=== PATIENT | male | born 1970 | race Caucasian/White ===

== ENCOUNTER 2019-12-28 07:17 | Inpatient (IN) | payer MEDICARE, MEDICAID ==
[~2019-12-28] VITALS: Ht 180.3 cm; Wt 89.8 kg
[~2019-12-28 07:17] MED LIST: ARIP15TA2 PO; OXCA300T29 PO; RISP4 PO
[2019-12-28] MEDS ORDERED: QUET25TA PO (07:24)
[2019-12-28] MEDS ORDERED: DIVA-76 PO (07:24)
[2019-12-28 08:12] LABS: BASOPHILS % (AUTO) 0.8 % (0.0-2.0); EOSINOPHILS % (AUTO) 3.4 % (1.0-6.0); HEMATOCRIT 44.3 % (41-53); LYMPHOCYTES # (AUTO) 0.8 K/uL (1.0-4.8); MEAN CORPUSCULAR HEMOGLOBIN 29.7 pg (26.0-34.0); MEAN CORPUSCULAR HGB CONC 33.9 G/dL (31.0-37.0); MEAN CORPUSCULAR VOLUME 88 fL (80-100); MONOCYTES # (AUTO) 0.5 K/uL (0.1-1.0); MONOCYTES % (AUTO) 13.1 % (2.0-9.0); NEUTROPHILS # (AUTO) 2.3 K/uL (1.8-7.7); NEUTROPHILS % (AUTO) 61.7 % (40.0-70.0); PLATELET COUNT (AUTO) 129 K/uL (150-450); RED BLOOD CELL COUNT(AUTO) 5.05 MIL/uL (4.50-5.90); RED CELL DISTRIBUTION WIDTH 13.9 % (11.5-14.5)
[2019-12-28 08:22] LABS: ANION GAP 8 mmol/L (8-16); CALCIUM, TOTAL 8.7 mg/dL (8.8-10.5); CARBON DIOXIDE 29 mmol/L (22-29); CHLORIDE 104 mmol/L (98-107); CREATININE 1.17 mg/dL (0.60-1.30); GLOMERULAR FILTR. RATE CALC > 60 mL/min (>60); GLUCOSE,RANDOM 89 mg/dL (70-110); SODIUM SERUM 141 mmol/L (136-145); UREA NITROGEN, BLOOD 17 mg/dL (7-18)
[2019-12-28 08:28] LABS: ALANINE AMINOTRANSFERASE 22 U/L (12-78); ALBUMIN 3.6 g/dL (3.4-5.0); ALKALINE PHOSPHATASE 70 U/L (46-116); ASPARTATE AMINOTRANSFERASE 15 U/L (15-37); BILIRUBIN,TOTAL 1.7 mg/dL (0.1-1.0); TOTAL PROTEIN, SERUM 6.3 g/dL (6.4-8.2)
[2019-12-28] MEDS ORDERED: HydrOXYzine PAMOATE 50 MG CAPSULE PO PRN (10:30)
[2019-12-28] MEDS ORDERED: TUBERCULIN, PURIFIED PROTEIN DERIVATIVE 5 TU/0.1 ML SYRINGE ID ONE (10:30)
[2019-12-28] MEDS ORDERED: MAG HYDROX/AL HYDROX/SIMETH ES 30 ML SUSPENSION UDCUP PO PRN (10:30)
[2019-12-28] MEDS ORDERED: MAGNESIUM HYDROXIDE SUSPENSION 30 ML UDCUP PO PRN (10:30)
[2019-12-28] MEDS ORDERED: ACETAMINOPHEN 325 MG TABLET PO PRN (10:30)
[2019-12-28] MEDS ORDERED: GuaiFENesin/D-METHORPHAN [SUGAR-FREE] 200-20MG/10 ML SYRUP UDCUP PO PRN (10:30)
[2019-12-28] MEDS ORDERED: PROMETHAZINE HCL 25 MG TABLET PO PRN (10:30)
[2019-12-28] MEDS ORDERED: QUEtiapine FUMARATE 100 MG TABLET PO PRN (10:30)
[2019-12-28] MEDS ORDERED: LOPERAMIDE HCL 2 MG CAPSULE PO PRN (10:30)
[2019-12-28 13:56] VITALS: BP 121/83
[2019-12-28 16:02] VITALS: BP 106/69
[2019-12-28] MEDS: THIAMINE HCL 100 MG TABLET PO SCH (16:34)
[2019-12-28] MEDS: QUEtiapine FUMARATE 200 MG TABLET PO SCH (20:40)
[2019-12-28] MEDS: DIVALPROEX SODIUM 500 MG ER TABLET PO SCH (20:41)
[2019-12-29 05:42] VITALS: BP 98/67
[2019-12-29 08:02] VITALS: BP 138/68
[2019-12-29 08:02] LABS: CHOL/HDL RATIO 3.1 (4.2-7.3); FREE T4 (FREE THYROXINE) 1.01 ng/dL (0.76-1.46); THYROID STIMULATING HORMONE 0.73 uIU/mL (0.36-3.74)
[2019-12-29] MEDS: THIAMINE HCL 100 MG TABLET PO SCH ×2 (08:10→16:33)
[2019-12-29] MEDS: FOLIC ACID 1 MG TABLET PO SCH (08:10)
[2019-12-29] MEDS: MULTIVITAMINS WITH MINERALS, THERAPEUTIC TABLET PO SCH (08:10)
[2019-12-29] MEDS: CITALOPRAM HYDROBROMIDE 20 MG TABLET PO SCH (08:10)
[2019-12-29 09:40] LABS: HEMOGLOBIN A1C 5.2 % (3.8-5.6)
[2019-12-29 16:04] VITALS: BP 106/67
[2019-12-29] MEDS: QUEtiapine FUMARATE 200 MG TABLET PO SCH (20:29)
[2019-12-29] MEDS: DIVALPROEX SODIUM 500 MG ER TABLET PO SCH (20:30)
[2019-12-30 06:06] VITALS: BP 105/66
[2019-12-30] MEDS: MULTIVITAMINS WITH MINERALS, THERAPEUTIC TABLET PO SCH (08:10)
[2019-12-30] MEDS: CITALOPRAM HYDROBROMIDE 20 MG TABLET PO SCH (08:10)
[2019-12-30] MEDS: FOLIC ACID 1 MG TABLET PO SCH (08:10)
[2019-12-30] MEDS: THIAMINE HCL 100 MG TABLET PO SCH ×2 (08:10→16:27)
[2019-12-30 08:23] VITALS: BP 104/62
[2019-12-30 16:02] VITALS: BP 119/81
[2019-12-30] MEDS: LORazepam 2 MG TABLET PO PRN (16:27)
[2019-12-30] MEDS: QUEtiapine FUMARATE 200 MG TABLET PO SCH (20:53)
[2019-12-30] MEDS: DIVALPROEX SODIUM 500 MG ER TABLET PO SCH (20:53)
[2019-12-31 00:11] VITALS: BP 103/49
[2019-12-31 08:14] VITALS: BP 100/60
[2019-12-31] MEDS: MULTIVITAMINS WITH MINERALS, THERAPEUTIC TABLET PO SCH (08:38)
[2019-12-31] MEDS: THIAMINE HCL 100 MG TABLET PO SCH ×2 (08:38→16:10)
[2019-12-31] MEDS: CITALOPRAM HYDROBROMIDE 20 MG TABLET PO SCH (08:38)
[2019-12-31] MEDS: FOLIC ACID 1 MG TABLET PO SCH (08:38)
[2019-12-31] MEDS: LORazepam 2 MG TABLET PO PRN (16:10)
[2019-12-31 16:31] VITALS: BP 105/64
[2019-12-31] MEDS: DIVALPROEX SODIUM 500 MG ER TABLET PO SCH (19:55)
[2019-12-31] MEDS: QUEtiapine FUMARATE 200 MG TABLET PO SCH (19:55)
[2020-01-01 00:14] VITALS: BP 127/69
[2020-01-01] MEDS: LORazepam 2 MG TABLET PO PRN (06:04)
[2020-01-01 08:32] VITALS: BP 125/72
[2020-01-01] MEDS: THIAMINE HCL 100 MG TABLET PO SCH ×2 (09:34→17:17)
[2020-01-01] MEDS: FOLIC ACID 1 MG TABLET PO SCH (09:34)
[2020-01-01] MEDS: CITALOPRAM HYDROBROMIDE 20 MG TABLET PO SCH (09:34)
[2020-01-01] MEDS: MULTIVITAMINS WITH MINERALS, THERAPEUTIC TABLET PO SCH (09:34)
[2020-01-01 16:22] VITALS: BP 126/70
[2020-01-01] MEDS: DIVALPROEX SODIUM 500 MG ER TABLET PO SCH (20:21)
[2020-01-01] MEDS: QUEtiapine FUMARATE 200 MG TABLET PO SCH (20:21)
[2020-01-02 06:00] VITALS: BP 132/80
[2020-01-02 08:09] VITALS: BP 119/74
[2020-01-02] MEDS: THIAMINE HCL 100 MG TABLET PO SCH ×2 (08:31→16:26)
[2020-01-02] MEDS: FOLIC ACID 1 MG TABLET PO SCH (08:31)
[2020-01-02] MEDS: CITALOPRAM HYDROBROMIDE 20 MG TABLET PO SCH (08:31)
[2020-01-02] MEDS: MULTIVITAMINS WITH MINERALS, THERAPEUTIC TABLET PO SCH (08:31)
[2020-01-02 16:04] VITALS: BP 117/63
[2020-01-02] MEDS: QUEtiapine FUMARATE 200 MG TABLET PO SCH (20:53)
[2020-01-02] MEDS: DIVALPROEX SODIUM 500 MG ER TABLET PO SCH (20:53)
[2020-01-03] MEDS: LORazepam 2 MG TABLET PO PRN (00:58)
[2020-01-03] MEDS: ZOLPIDEM TARTRATE 10 MG TABLET PO PRN (00:58)
[2020-01-03 01:01] VITALS: BP 115/76
[2020-01-03] MEDS: FOLIC ACID 1 MG TABLET PO SCH (08:05)
[2020-01-03] MEDS: MULTIVITAMINS WITH MINERALS, THERAPEUTIC TABLET PO SCH (08:05)
[2020-01-03] MEDS: THIAMINE HCL 100 MG TABLET PO SCH ×2 (08:05→16:36)
[2020-01-03] MEDS: CITALOPRAM HYDROBROMIDE 20 MG TABLET PO SCH (08:05)
[2020-01-03 08:26] VITALS: BP 116/69
[2020-01-03 16:02] VITALS: BP 108/66
[2020-01-03] MEDS: DIVALPROEX SODIUM 500 MG ER TABLET PO SCH (20:32)
[2020-01-03] MEDS: QUEtiapine FUMARATE 200 MG TABLET PO SCH (20:33)
[2020-01-04 00:56] VITALS: BP 101/66
[2020-01-04] MEDS: FOLIC ACID 1 MG TABLET PO SCH (07:57)
[2020-01-04] MEDS: THIAMINE HCL 100 MG TABLET PO SCH ×2 (07:57→16:30)
[2020-01-04] MEDS: MULTIVITAMINS WITH MINERALS, THERAPEUTIC TABLET PO SCH (07:57)
[2020-01-04] MEDS: CITALOPRAM HYDROBROMIDE 20 MG TABLET PO SCH (07:57)
[2020-01-04 08:14] VITALS: BP 121/78
[2020-01-04 16:15] VITALS: BP 106/73
[2020-01-04] MEDS: QUEtiapine FUMARATE 200 MG TABLET PO SCH (20:26)
[2020-01-04] MEDS: DIVALPROEX SODIUM 500 MG ER TABLET PO SCH (20:27)
[2020-01-04] MEDS: ZOLPIDEM TARTRATE 10 MG TABLET PO PRN (23:51)
[2020-01-05 00:19] VITALS: BP 110/72
[2020-01-05] MEDS: CITALOPRAM HYDROBROMIDE 20 MG TABLET PO SCH (08:11)
[2020-01-05] MEDS: MULTIVITAMINS WITH MINERALS, THERAPEUTIC TABLET PO SCH (08:11)
[2020-01-05] MEDS: THIAMINE HCL 100 MG TABLET PO SCH ×2 (08:11→16:29)
[2020-01-05] MEDS: FOLIC ACID 1 MG TABLET PO SCH (08:12)
[2020-01-05 08:44] VITALS: BP 116/77
[2020-01-05 16:14] VITALS: BP 117/66
[2020-01-05] MEDS ORDERED: BISACODYL 5 MG EC TABLET PO PRN (18:45)
[2020-01-05] MEDS: DIVALPROEX SODIUM 500 MG ER TABLET PO SCH (20:28)
[2020-01-05] MEDS: QUEtiapine FUMARATE 200 MG TABLET PO SCH (20:28)
[2020-01-06 00:20] VITALS: BP 110/66
[2020-01-06] MEDS: CITALOPRAM HYDROBROMIDE 20 MG TABLET PO SCH (08:12)
[2020-01-06] MEDS: THIAMINE HCL 100 MG TABLET PO SCH ×2 (08:12→16:30)
[2020-01-06] MEDS: FOLIC ACID 1 MG TABLET PO SCH (08:12)
[2020-01-06] MEDS: MULTIVITAMINS WITH MINERALS, THERAPEUTIC TABLET PO SCH (08:12)
[2020-01-06 08:27] VITALS: BP 113/71
[2020-01-06 16:08] VITALS: BP 106/72
[2020-01-06] MEDS: QUEtiapine FUMARATE 200 MG TABLET PO SCH (20:26)
[2020-01-06] MEDS: DIVALPROEX SODIUM 500 MG ER TABLET PO SCH (20:26)
[2020-01-07 00:02] VITALS: BP 104/70
[2020-01-07 08:08] VITALS: BP 112/66
[2020-01-07] MEDS: FOLIC ACID 1 MG TABLET PO SCH (08:43)
[2020-01-07] MEDS: MULTIVITAMINS WITH MINERALS, THERAPEUTIC TABLET PO SCH (08:43)
[2020-01-07] MEDS: CITALOPRAM HYDROBROMIDE 20 MG TABLET PO SCH (08:44)
[2020-01-07] MEDS: LORazepam 2 MG TABLET PO PRN (13:24)
[2020-01-07 16:02] VITALS: BP 118/67
[2020-01-07] MEDS ORDERED: DIVA500T52 PO (18:30)
[2020-01-07] MEDS ORDERED: CITA-106 PO (18:30)
[2020-01-07] MEDS ORDERED: QUET200T29 PO (18:30)
[2020-01-07] MEDS: DIVALPROEX SODIUM 500 MG ER TABLET PO SCH (20:21)
[2020-01-07] MEDS: QUEtiapine FUMARATE 200 MG TABLET PO SCH (20:21)
[2020-01-08 01:21] VITALS: BP 101/69
[2020-01-08] MEDS: MULTIVITAMINS WITH MINERALS, THERAPEUTIC TABLET PO SCH (08:17)
[2020-01-08] MEDS: CITALOPRAM HYDROBROMIDE 20 MG TABLET PO SCH (08:17)
== END 2020-01-08 08:05 | disposition home or self-care (01) | DRG 885 ==
LOC: EMS 07:21 → B2X 10:51 → UNDOADMIN 12:41
PROVIDERS: ADMIT Psychiatry & Neurology Psychiatry; ATTEND Psychiatry & Neurology Psychiatry
DX: F25.9 Schizoaffective disorder, unspecified (principal); B19.20 Unspecified viral hepatitis C without hepatic coma; D64.9 Anemia, unspecified; D69.6 Thrombocytopenia, unspecified; E78.00 Pure hypercholesterolemia, unspecified; E78.5 Hyperlipidemia, unspecified; F17.210 Nicotine dependence, cigarettes, uncomplicated; F41.0 Panic disorder [episodic paroxysmal anxiety]; F60.0 Paranoid personality disorder; I10 Essential (primary) hypertension; J45.909 Unspecified asthma, uncomplicated; K59.00 Constipation, unspecified; R45.850 Homicidal ideations; Z59.0 Homelessness; Z79.899 Other long term (current) drug therapy
CPT/HCPCS: 83036; 84439; 84443; 86592; G0480

== ENCOUNTER 2020-08-11 11:46 | Emergency (ER) | payer MEDICARE ==
[~2020-08-11] VITALS: Ht 180.3 cm; Wt 93.2 kg
[~2020-08-11 11:46] MED LIST changes: -ARIP15TA2 PO; +CITA-144 PO; +DIVA-80 PO; -OXCA300T29 PO; +QUET200T29 PO; -RISP4 PO
[2020-08-11 13:30] LABS: BASOPHILS % (AUTO) 0.7 % (0.0-2.0); EOSINOPHILS % (AUTO) 1.5 % (1.0-6.0); HEMATOCRIT 46.1 % (41-53); HEMOGLOBIN 15.8 g/dL (13.5-17.5); LYMPHOCYTES # (AUTO) 1.3 K/uL (1.0-4.8); MEAN CORPUSCULAR HEMOGLOBIN 30.4 pg (26.0-34.0); MEAN CORPUSCULAR HGB CONC 34.4 G/dL (31.0-37.0); MEAN CORPUSCULAR VOLUME 88 fL (80-100); MONOCYTES # (AUTO) 0.4 K/uL (0.1-1.0); MONOCYTES % (AUTO) 7.2 % (2.0-9.0); NEUTROPHILS # (AUTO) 3.5 K/uL (1.8-7.7); NEUTROPHILS % (AUTO) 65.6 % (40.0-70.0); PLATELET COUNT (AUTO) 143 K/uL (150-450); RED BLOOD CELL COUNT(AUTO) 5.22 MIL/uL (4.50-5.90); RED CELL DISTRIBUTION WIDTH 14.1 % (11.5-14.5)
[2020-08-11 13:41] LABS: ANION GAP 7 mmol/L (8-16); CALCIUM, TOTAL 9.6 mg/dL (8.8-10.5); CARBON DIOXIDE 29 mmol/L (22-29); CHLORIDE 107 mmol/L (98-107); CREATININE 1.12 mg/dL (0.60-1.30); GLOMERULAR FILTR. RATE CALC > 60 mL/min (>60); GLUCOSE,RANDOM 92 mg/dL (70-110); POTASSIUM 4.3 mmol/L (3.5-5.1); SODIUM SERUM 143 mmol/L (136-145); UREA NITROGEN, BLOOD 10 mg/dL (7-18)
[2020-08-11 13:47] LABS: ALANINE AMINOTRANSFERASE 20 U/L (12-78); ALBUMIN 3.8 g/dL (3.4-5.0); ALKALINE PHOSPHATASE 81 U/L (46-116); ASPARTATE AMINOTRANSFERASE 9 U/L (15-37); BILIRUBIN,TOTAL 0.5 mg/dL (0.1-1.0); TOTAL PROTEIN, SERUM 7.2 g/dL (6.4-8.2)
[2020-08-11 13:49] LABS: COVID AG,FIA SOURCE NASOPHARYNGEAL
[2020-08-11 14:02] LABS: AMPHET/METH SCREEN,URINE NEGATIVE (NEGATIVE); BARBITURATE SCREEN, URINE NEGATIVE (NEGATIVE); BENZODIAZEPINES SCREEN,URINE NEGATIVE (NEGATIVE); CANNABINOID SCREEN,URINE NEGATIVE (NEGATIVE); COCAINE SCREEN,URINE NEGATIVE (NEGATIVE); METHADONE SCREEN, URINE NEGATIVE (NEGATIVE); OPIATE SCREEN,URINE NEGATIVE (NEGATIVE); PHENCYCLIDINE SCREEN,URINE NEGATIVE (NEGATIVE)
[2020-08-11 15:23] VITALS: BP 142/75
== END 2020-08-11 17:26 | disposition home or self-care (01) ==
LOC: EMS 12:57
DX: R45.1 Restlessness and agitation (principal); F31.9 Bipolar disorder, unspecified; E78.00 Pure hypercholesterolemia, unspecified; F20.9 Schizophrenia, unspecified; Z20.828 Contact with and (suspected) exposure to other viral communicable diseases; Z88.8 Allergy status to other drugs, medicaments and biological substances
CPT/HCPCS: 36415; 80053; 80307; 85025; 87426; 99283; G0480